=== PATIENT | male | born 1960 | race Caucasian/White ===

== ENCOUNTER 2018-01-11 16:45 | Inpatient (IN) ==
--- NOTE | 2018-01-11 17:06 | Emergency Department Note ---
Disposition Clinical Impression: Chest pain Qualifiers: Chest pain type: unspecified Qualified Code(s): R07.9 - Chest pain, unspecified Disposition: Admitted As Inpatient Condition: Good Time of Disposition: 17:43 Chest Pain HPI - General Chief Complaint: ED Chest Pain Stated Complaint: chest pain Time Seen by Provider: 01/11/18 17:02 Source: patient Mode of arrival: ambulatory Limitations: no limitations Vital Signs Reviewed: Yes Nursing Notes Reviewed: Yes - History of Present Illness HPI Narrative: Patient is a 57-year-old male with past medical history of GERD. He presents today due to chest pain. He states that for the past 24 hours, he has had midsternal chest discomfort 30 to his back and jaws. He says that it comes and goes and lasts several hours at a time. Does not worsen with exertion, no worsening with deep inspiration. Denies any associated nausea, vomiting, sweating. He says that he has had GERD related discomfort in the past but that this feels different and describes as a pressure. 10 out of 10 at its worst. Currently rates it as 0 out of 10. Denies any history of any hypertension, diabetes, high cholesterol. Denies any history of [place] or cardiac stents, has never had a stress test or heart catheter in the past. Did not take any medication prior to coming in, did not take aspirin or nitroglycerin. Severity scale (1-10): 5 - Related Data Home Medications Medication Instructions Recorded Confirmed Ibuprofen 07/07/17 Tylenol 07/07/17 07/07/17 Previous Rx's Medication Instructions Recorded cephALEXin [Keflex] 500 mg PO QID #40 capsule 07/07/17 cephALEXin [Keflex] 500 mg PO QID #40 capsule 07/15/17 Allergies Allergy/AdvReac Type Severity Reaction Status Date / Time No Known Allergies Allergy Verified 01/11/18 16:48 All systems ED: reviewed and negative except as stated. Constitutional: Denies: fever Cardiovascular: Reports: chest pain Respiratory: Denies: cough, dyspnea, wheezes Gastrointestinal: Denies: abdominal pain, nausea, vomiting, diarrhea Genitourinary: Denies: urgency, dysuria Integumentary: Denies: rash Neurological: Denies: headache, weakness, numbness, paresthesias Chest Pain PMH - Past Medical History Medical history: Reports: non-contributory Psychiatric history: Reports: no psych history - Social History Smoking Status: 2nd Hand Smoke Exposure Alcohol use: Reports: none Drug use: Reports: none Physical Exam - General Limitations: no limitations General appearance: alert, in no apparent distress - Head Head exam: atraumatic, normocephalic, normal inspection - Eye Eye exam: Present: normal appearance, PERRL, EOMI - ENT ENT exam: normal exam, normal oropharynx, mucous membranes moist - Neck Neck exam: Present: normal inspection, full ROM, trachea midline. Absent: tenderness - Chest Chest inspection: Present: normal inspection, symmetric chest wall rise - Respiratory Respiratory exam: Present: normal lung sounds bilaterally - Cardiovascular Cardiovascular exam: Present: regular rate, normal rhythm, normal heart sounds - Abdominal Exam Abdominal exam: Present: soft, Non-Tender. Absent: tenderness, distention, guarding, rebound, rigidity - Extremities Exam Extremities exam: Present: normal inspection, full ROM. Absent: tenderness, pedal edema - Neurological Exam Neurological exam: Present: alert, oriented X3 - Psychiatric Psychiatric exam: Present: normal affect, normal mood - Skin Skin exam: Present: warm, dry, intact, normal color. Absent: rash Course Course Narrative: Systolic blood pressure in the 100s. We will give the patient normal saline bolus of 1 L. Otherwise, the rest of the vitals within normal limits. Physical exam benign. Heart regular rate and rhythm, lungs clear to auscultation, abdomen soft and nontender. No reproducible pain on chest, no rashes. We will give the patient aspirin 325 mg he has declined any other medication at this time. He does not currently have any chest pain at this time , no shortness of breath. Will perform EKG, chest x-ray, troponin, basic labs. We will likely admit the patient for chest pain rule out even if workup is negative due to no history of heart catheter or stress test, poor follow-up. 18:22 patient has an episode of lightheadedness. Repeat EKG shows bradycardia with a rate in the 40s. No acute ST changes. There is a shortened CO interval and somewhat widened QRS. Pending troponin at this time. Chest x-ray negative for any acute cardio pulmonary process. CBC shows mild elevation white blood cell count at 12.5. Patient had a be given 1 mg of atropine due to heart rate in the 40s, blood pressure 80s over 40s. After atropine, heart rate improved to the 80s, blood pressure repeated was 120s over 70s. Patient did get 1 L normal saline bolus pressure bagged in. He now states he no longer has lightheadedness but does have some mild return of his chest pressure rated a 2 out of 10 at this time. 19:[address] Bello. Discussed presentation, current chest discomfort , elevated troponin, negative chest x-ray. Discussed most recent EKG that showed a new T-wave inversions in aVL and ST depression in V2 through V5 that is new from first EKG that was performed. She recommended heparin the patient had no contra indications. I discussed any recent surgeries, GI bleeding, recent strokes, any injuries or head injury with the patient and he denied any of these. No current contraindications to heparin. She also recommended pain control this time. Otherwise, but this time. She states that cardiology will see the patient as consult and will possibly take to Full Time Paramedic after evaluation tomorrow. Patient admitted to hospitalist Dr. Mak. Patient will be going to . Vital Signs Temperature 98.2 F 01/11/18 16:45 Pulse Rate 72 01/11/18 16:45 Respiratory Rate 18 01/11/18 16:45 Blood Pressure 101/63 01/11/18 16:45 O2 Sat by Pulse Oximetry 99 01/11/18 16:45 Temperature 98.2 F 01/11/18 17:22 Pulse Rate 86 01/11/18 19:15 Respiratory Rate 20 01/11/18 18:17 Blood Pressure 125/90 01/11/18 19:15 O2 Sat by Pulse Oximetry 100 01/11/18 18:17 Oxygen Delivery Oxygen Delivery Room Air Chest Pain - MDM Narrative Medical decision making narrative: Systolic blood pressure in the 100s. We will give the patient normal saline bolus of 1 L. Otherwise, the rest of the vitals within normal limits. Physical exam benign. Heart regular rate and rhythm, lungs clear to auscultation, abdomen soft and nontender. No reproducible pain on chest, no rashes. We will give the patient aspirin 325 mg he has declined any other medication at this time. He does not currently have any chest pain at this time , no shortness of breath. Will perform EKG, chest x-ray, troponin, basic labs. We will likely admit the patient for chest pain rule out even if workup is negative due to no history of heart catheter or stress test, poor follow-up. 18:22 patient has an episode of lightheadedness. Repeat EKG shows bradycardia with a rate in the 40s. No acute ST changes. There is a shortened CO interval and somewhat widened QRS. Pending troponin at this time. Chest x-ray negative for any acute cardio pulmonary process. CBC shows mild elevation white blood cell count at 12.5. Patient had a be given 1 mg of atropine due to heart rate in the 40s, blood pressure 80s over 40s. After atropine, heart rate improved to the 80s, blood pressure repeated was 120s over 70s. Patient did get 1 L normal saline bolus pressure bagged in. He now states he no longer has lightheadedness but does have some mild return of his chest pressure rated a 2 out of 10 at this time. 19:[address] Bello. Discussed presentation, current chest discomfort , elevated troponin, negative chest x-ray. Discussed most recent EKG that showed a new T-wave inversions in aVL and ST depression in V2 through V5 that is new from first EKG that was performed. She recommended heparin the patient had no contra indications. I discussed any recent surgeries, GI bleeding, recent strokes, any injuries or head injury with the patient and he denied any of these. No current contraindications to heparin. She also recommended pain control this time. Otherwise, but this time. She states that cardiology will see the patient as consult and will possibly take to Full Time Paramedic after evaluation tomorrow. Patient admitted to hospitalist Dr. Mak. Patient will be going to . - Medical Records Medical records reviewed: Yes I reviewed the patient's medical records. - Lab Data Lab results reviewed: Yes I reviewed the patient's lab results. Result diagrams: 01/11/18 17:22 01/11/18 17:22 Lab Results 01/11/18 01/11/18 01/11/18 Range/Units 17:22 17:22 17:22 WBC 12.5 H (4.3-11.1) K/mcL RBC 4.42 (4.19-5.50) M/mcL Hgb 14.1 (12.9-16.9) g/dL Hct 40.8 (37.5-50.1) % MCV 92.3 (83.0-100.0) fL MCH 31.9 (28.0-33.3) pg MCHC 34.6 (31.6-35.5) g/dL RDW 13.1 (11.5-14.5) % Plt Count 241 (140-400) K/mcL MPV 10.1 (9.4-12.4) fL Immature Gran % 0.5 (0-4) % Seg Neutrophils % 89.6 % Lymphocytes % 6.9 % Monocytes % 2.6 % Eosinophils % 0.2 % Basophils % 0.2 % Neutrophils # 11.3 H (1.6-8.9) K/mcL Lymphocytes # 0.9 (0.6-4.6) K/mcL Monocytes # 0.3 (0.0-1.3) K/mcL Eosinophils # 0.0 (0.0-0.6) K/mcL Basophils # 0.0 (0.0-0.2) K/mcL PT 11.4 (9.4-12.1) Seconds INR 1.1 APTT 28.2 (26.0-36.0) Seconds Sodium 137 (136-145) mEq/L Potassium 3.9 (3.5-5.1) mEq/L Chloride 102 (98-107) mEq/L Carbon Dioxide 27 (23-29) mEq/L BUN 12 (6-20) mg/dL Creatinine 0.90 (0.70-1.30) mg/dL Est GFR ( Amer) > 60 (> 60) Est GFR (Non-Af Amer) > 60 (> 60) BUN/Creatinine Ratio 13 (6-26) Glucose 127 H (70-105) mg/dL POC Glucose (70-99) mg/dL Calculated Osmolality 285 (280-300) Calcium 9.8 (8.6-10.3) mg/dL Troponin I 1.13 H* (< 0.04) ng/mL 01/11/18 Range/Units 18:07 WBC (4.3-11.1) K/mcL RBC (4.19-5.50) M/mcL Hgb (12.9-16.9) g/dL Hct (37.5-50.1) % MCV (83.0-100.0) fL MCH (28.0-33.3) pg MCHC (31.6-35.5) g/dL RDW (11.5-14.5) % Plt Count (140-400) K/mcL MPV (9.4-12.4) fL Immature Gran % (0-4) % Seg Neutrophils % % Lymphocytes % % Monocytes % % Eosinophils % % Basophils % % Neutrophils # (1.6-8.9) K/mcL Lymphocytes # (0.6-4.6) K/mcL Monocytes # (0.0-1.3) K/mcL Eosinophils # (0.0-0.6) K/mcL Basophils # (0.0-0.2) K/mcL PT (9.4-12.1) Seconds INR APTT (26.0-36.0) Seconds Sodium (136-145) mEq/L Potassium (3.5-5.1) mEq/L Chloride (98-107) mEq/L Carbon Dioxide (23-29) mEq/L BUN (6-20) mg/dL Creatinine (0.70-1.30) mg/dL Est GFR ( Amer) (> 60) Est GFR (Non-Af Amer) (> 60) BUN/Creatinine Ratio (6-26) Glucose (70-105) mg/dL POC Glucose 124 H (70-99) mg/dL Calculated Osmolality (280-300) Calcium (8.6-10.3) mg/dL Troponin I (< 0.04) ng/mL - Radiology Data Radiology results reviewed: Yes I reviewed the patient's radiology results. Chest X-Ray 01/11/18 17:02 IMPRESSION: No radiographic evidence of acute cardiopulmonary disease. D/ / Armin Mccall / Armin Mccall Interpreting Provider: Armin Mcclal - EKG Data EKG attestation: Yes I reviewed and interpreted this EKG. EKG results narrative: 01/11/2018 at 17:14. Normal sinus rhythm. Rate 75. CO 147. QRS 97. QTC 428. Normal axis. No acute ST elevation or depression. 01/12/20 1818:06. Sinus bradycardia. Rate 44. CO 149. QRS 100. QTC 404. Normal axis. No acute ST elevation or depression. Short CO interval. No obvious delta waves. EKG #3. 01/11/2018 18:52. Normal sinus rhythm. Rate 99. CO 163. QRS 102. QTC 393. No axis. ST depression in V2 through V5, new T-wave inversion in aVL. These changes are new from first EKG. No STEMI criteria. Heart Score - Score History: Moderately Suspicious EKG: Normal Age: 45-65 Risk Factors: No risk factors known Troponin: Less than normal limit HEART Score Total: 2 S.B.A.R. - S.B.A.R. Situation: Demographics, MOA Background: Presenting Complaint, Relevant PMH, Meds, & Allergies Assessment: Vital Signs, Course and respsone to treatment, Exam Concerns, Patient/Family Expectation, Pertinant Lab Results Recommendation: Barrier(s) to disposition, Recommendation based on pending studies, treatments, or consults S.B.A.R. Report Given to: Dr. Mak
[2018-01-11] MEDS ORDERED: Aspirin 325 MG TABLET PO ONE (17:30)
[2018-01-11 17:35] LABS: Basophils % 0.2 %; Eosinophils % 0.2 %; Hematocrit 40.8 % (37.5-50.1); Hemoglobin 14.1 g/dL (12.9-16.9); Immature Granulocytes % 0.5 % (0-4); Lymphocytes # 0.9 K/mcL (0.6-4.6); Lymphocytes % 6.9 %; Mean Corpuscular HGB Conc 34.6 g/dL (31.6-35.5); Mean Corpuscular Hemoglobin 31.9 pg (28.0-33.3); Mean Corpuscular Volume 92.3 fL (83.0-100.0); Mean Platelet Volume 10.1 fL (9.4-12.4); Monocytes # 0.3 K/mcL (0.0-1.3); Monocytes % 2.6 %; Neutrophils # 11.3 K/mcL (1.6-8.9); Platelet Count 241 K/mcL (140-400); Red Blood Count 4.42 M/mcL (4.19-5.50); Red Cell Distribution Width 13.1 % (11.5-14.5); Segmented Neutrophils % 89.6 %
[2018-01-11] MEDS ORDERED: 0.9 % Sodium Chloride 1,000 ML IVC ONE (17:40)
[2018-01-11 17:46] LABS: INR 1.1; Prothrombin Time 11.4 Seconds (9.4-12.1)
[2018-01-11 17:54] LABS: Activated Partial Thrombo Time 28.2 Seconds (26.0-36.0)
[2018-01-11] MEDS ORDERED: *HR* Atropine Sulfate 1 MG/10 ML SYRINGE IVP ONE (18:10)
--- NOTE | 2018-01-11 18:21 | Emergency Department Note ---
START Narrative - START START: I examined this patient and my medical decision-making was reviewed with the Resident Physician. I agree with the documented findings, disposition and treatment plan as described except to the extent set forth below. 57 yo M here for chest pressure x 24 hours. no hx of CAD. just described a pressure in his chest. 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 no previous [place] or anything like this. pt had episode in ER of a symptomatic bradycardic episode. HR dropped to 30s and got hypotensive. fluids started right away. placed on pads. given atropine and he responded well. awaiting trop results. CXR neg repeat EKG showed bradycardia. he's on the pacer pads if needed. HR now in the 80s and his BP has improved to 110 systolic. pt will be admitted. critical care time of 35 min spent in medical management of symptomatic bradycardia, unstable angina, hypotension.
[2018-01-11 18:25] LABS: BUN/Creatinine Ratio 13 (6-26); Blood Urea Nitrogen 12 mg/dL (6-20); Calcium 9.8 mg/dL (8.6-10.3); Carbon Dioxide 27 mEq/L (23-29); Chloride 102 mEq/L (98-107); Glucose 127 mg/dL (70-105); Osmolality,Calculated 285 (280-300); Potassium 3.9 mEq/L (3.5-5.1); Sodium 137 mEq/L (136-145); eGFR For African Americans > 60 (> 60); eGFR For Non-African Americans > 60 (> 60)
[2018-01-11 18:43] LABS: Troponin I 1.13 ng/mL (< 0.04)
[2018-01-11] MEDS ORDERED: *HR* Heparin 5,000 UNIT/ML VIAL IVP PRN ×2 (18:59)
[2018-01-11] MEDS ORDERED: *HR* FentaNYL (PF) 100 MCG/2 ML VIAL IVP ONE (18:59)
[2018-01-11] MEDS ORDERED: *HR* Heparin 5,000 UNIT/ML VIAL IVP ONE (18:59)
[2018-01-11] MEDS ORDERED: Heparin 25,000 UNIT/500 ML D5W 25,000 UNIT/500 ML BAG IVC SCH (19:00)
[2018-01-11] MEDS ORDERED: Naloxone 0.4 MG/ML INJ IVP PRN (20:13)
[2018-01-11] MEDS ORDERED: Ondansetron 4 MG/2 ML VIAL IVP PRN (20:22)
[2018-01-11] MEDS ORDERED: Acetaminophen 325 MG TABLET PO PRN (20:22)
[2018-01-11] MEDS ORDERED: OXYCODONE Oral CONC 10 MG/0.5 ML ORAL.SYG SL PRN (20:22)
--- NOTE | 2018-01-11 20:37 | Internal Med History&Physical ---
<Sadia Foster - Last Filed: 01/11/18 20:34> Date of Encounter: 01/11/18 Time of Encounter: 20:35 Internal Medicine - H&P: HPI Chief complaint: Chest pain Admitted From: Emergency Dept Plans for Post Hospital Care: Home History of present illness: Mr. Romero is a 57 year old male with past medical history of Gerd presented to the ED today for chief complaint of chest pain that started 4 PM today prior. She described the pain as a dull ache that was 4/10, non pleuritic, radiates to the jaw and back. He states that this has never happened before. He denies exacerbating or relieving factors. He does admit to shortness of breath when the pain for started denies current shortness of breath. He denies current chest pain. He denies nausea, vomiting, diarrhea, fever, chills, hematuria, hematochezia, hematuria. Past Med Surg Social Fam HX - Past Medical History Medical history: non-contributory Psychiatric history: no psych history - Social History Smoking Status: 2nd Hand Smoke Exposure Smokeless Tobacco Status: Yes (chews tabacco) Alcohol use: none Drug use: none - Family History Mother Hx Family Endocrine Disorder: Yes (DM) Internal Medicine - H&P: Meds Ibuprofen 07/07/17 [History] Tylenol 07/07/17 [History] cephALEXin [Keflex] 500 mg PO QID #40 capsule 07/07/17 [Rx] cephALEXin [Keflex] 500 mg PO QID #40 capsule 07/15/17 [Rx] 3 Allergy/AdvReac Type Severity Reaction Status Date / Time No Known Allergies Allergy Verified 01/11/18 16:48 All Systems PM: A 10-system review of systems was performed and is negative for pertinent findings except as documented above in the HPI. - Constitutional Constitutional: as per HPI - EENT Eyes: as per HPI Ears: as per HPI Nose, mouth and throat: as per HPI - Breasts Breasts: as per HPI - Cardiovascular Cardiovascular ROS IM: as per HPI - Respiratory Respiratory: as per HPI - Gastrointestinal Gastrointestinal: as per HPI - Genitourinary Genitourinary ROS male: as per HPI - Musculoskeletal Musculoskeletal ROS IM: as per HPI - Integumentary Integumentary IM: as per HPI - Neurological Neurological ROS: as per HPI - Psychiatric Psychiatric: as per HPI - Endocrine Endocrine IM: as per HPI - Hematologic/Lymphatic Hematologic/Lymphatic: as per HPI - Allergic/Immunologic Allergic/Immunologic: as per HPI - Constitutional Vitals: Temp Pulse Resp BP Pulse Ox 98.2 F 86 20 125/90 100 01/11/18 17:22 01/11/18 19:15 01/11/18 18:17 01/11/18 19:15 01/11/18 18:17 General appearance: Present: A&O X 3, pleasant, no acute distress, answers questions appropriately - Head Head exam: Present: atraumatic, normocephalic - ENT ENT exam: Present: mucous membranes moist - Neck Neck exam general surgery: Present: supple, trachea midline - Respiratory Respiratory exam: Present: CTAB - Cardiovascular Cardiovascular exam: Present: RRR, +S1, +S2. Absent: systolic murmur Additional comments: Chest pain will not reproducible with chest palpation - GI/Abdominal GI/Abdominal exam: Present: normal bowel sounds, soft. Absent: distended, tenderness - Extremities Exam Extremities exam: Absent: cyanotic, pedal edema - Neurological Exam Neurological exam: Present: alert, oriented X3, no focal deficits - Psychiatric Psychiatric exam: Present: normal affect, normal mood Internal Med - H&P Results - Labs CBC & Chem 7: 01/11/18 17:22 01/11/18 17:22 Labs: Short CBC 01/11/18 Range/Units 17:22 WBC 12.5 H (4.3-11.1) K/mcL Hgb 14.1 (12.9-16.9) g/dL Hct 40.8 (37.5-50.1) % Plt Count 241 (140-400) K/mcL Neutrophils # 11.3 H (1.6-8.9) K/mcL BMP 01/11/18 17:22 Sodium 137 Potassium 3.9 Chloride 102 Carbon Dioxide 27 BUN 12 Creatinine 0.90 Glucose 127 H Calcium 9.8 Cardiac Enzymes 01/11/18 Range/Units 17:22 Troponin I 1.13 H* (< 0.04) ng/mL - Impressions ITS Impressions Chest X-Ray 01/11/18 17:02 IMPRESSION: No radiographic evidence of acute cardiopulmonary disease. D/ / Armin Mccall / Armin Mccall Interpreting Provider: Armin Mccall - Assessment and plan (1) Chest pain Current Visit: Yes Status: Acute Assessment and plan: describes non anginal chest pain that started at 4 PM yesterday that of sub sternal, 11/26, radiates the jaw and back, known pleuritic PEDRITO score: 3 patient received fluid bolus, aspirin in the ED. He also required 1 mg atropine due to bradycardia with heart rate in the 30s. Plan: cardiology consult it in emergency department, they will evaluate tomorrow. Aspirin, Statin pain control, oxygen as needed heparin GTT we will hold off on beta blockers at this time as patient was bradycardic, we will closely monitor HR. Qualifiers: Chest pain type: unspecified Qualified Code(s): R07.9 - Chest pain, unspecified (2) DVT prophylaxis Current Visit: Yes Status: Acute Assessment and plan: Heparin GTT (3) GERD (gastroesophageal reflux disease) Current Visit: Yes Status: Chronic Qualifiers: Esophagitis presence: without esophagitis Qualified Code(s): K21.9 - Gastro -esophageal reflux disease without esophagitis - Time Spent With Patient Total time spent is greater than 50% in coordination of care (as documented) at patient's floor/unit and/or counseling patient: <Nadia Levine - Last Filed: 01/11/18 22:02> Date of Encounter: 01/11/18 Internal Medicine - H&P: HPI History of present illness: Mr. Romero is a 57 year old male All Systems PM: A 10-system review of systems was performed and is negative for pertinent findings except as documented above in the HPI. - Constitutional Vitals: Temp Pulse Resp BP Pulse Ox 98.2 F 64 18 91/61 100 01/11/18 17:22 01/11/18 20:45 01/11/18 21:06 01/11/18 21:06 01/11/18 18:17 Internal Med - H&P Results - Labs CBC & Chem 7: 01/11/18 17:22 01/11/18 17:22 - Attending Attestation I have seen and examined this patient independently. I have discussed with resident physician Dr Foster regarding the management plan. Agree with the documentation. - Assessment and plan (1) Chest pain Current Visit: Yes Status: Acute Qualifiers: Chest pain type: unspecified Qualified Code(s): R07.9 - Chest pain, unspecified (2) DVT prophylaxis Current Visit: Yes Status: Acute (3) GERD (gastroesophageal reflux disease) Current Visit: Yes Status: Chronic Qualifiers: Esophagitis presence: without esophagitis Qualified Code(s): K21.9 - Gastro -esophageal reflux disease without esophagitis - Time Spent With Patient Total time spent is greater than 50% in coordination of care (as documented) at patient's floor/unit and/or counseling patient:
[2018-01-12 00:41] LABS: Basophils % 0.2 %; Eosinophils % 0.2 %; Hematocrit 37.7 % (37.5-50.1); Hemoglobin 12.7 g/dL (12.9-16.9); Immature Granulocytes % 0.3 % (0-4); Lymphocytes # 0.9 K/mcL (0.6-4.6); Lymphocytes % 7.7 %; Mean Corpuscular HGB Conc 33.7 g/dL (31.6-35.5); Mean Corpuscular Hemoglobin 31.4 pg (28.0-33.3); Mean Corpuscular Volume 93.1 fL (83.0-100.0); Mean Platelet Volume 10.4 fL (9.4-12.4); Monocytes # 0.5 K/mcL (0.0-1.3); Monocytes % 4.2 %; Neutrophils # 9.8 K/mcL (1.6-8.9); Platelet Count 197 K/mcL (140-400); Red Blood Count 4.05 M/mcL (4.19-5.50); Red Cell Distribution Width 13.1 % (11.5-14.5); Segmented Neutrophils % 87.4 %
[2018-01-12 01:01] LABS: BUN/Creatinine Ratio 13 (6-26); Blood Urea Nitrogen 12 mg/dL (6-20); Calcium 9.4 mg/dL (8.6-10.3); Carbon Dioxide 27 mEq/L (23-29); Chloride 105 mEq/L (98-107); Chol/HDL Ratio 3.6 (0-4.9); Cholesterol 174 mg/dL (< 200); Glucose 134 mg/dL (70-105); HDL Cholesterol 49 mg/dL (40-59); LDL Cholesterol,Calculated 107 mg/dL (0-99); Magnesium 2.2 mg/dL (1.6-2.6); Osmolality,Calculated 286 (280-300); Phosphorous 4.3 mg/dL (2.7-4.5); Potassium 4.1 mEq/L (3.5-5.1); Sodium 137 mEq/L (136-145); Triglycerides 90 mg/dL (< 150); eGFR For African Americans > 60 (> 60); eGFR For Non-African Americans > 60 (> 60)
[2018-01-12] MEDS ORDERED: 0.9 % Sodium Chloride 1,000 ML ONE ×2 (09:06→09:15)
[2018-01-12] MEDS ORDERED: Nitroglycerin 1,000 MCG/10 ML VIAL IV ONE (09:06)
[2018-01-12] MEDS ORDERED: Heparin 1,000 UNITS/500 mL 500 ML ONE (09:06)
[2018-01-12] MEDS ORDERED: *HR* Heparin 10,000 UNIT/10 ML VIAL ONE (09:06)
[2018-01-12] MEDS ORDERED: ISOVUE-370 200 ML INFUS..BTL IV ONE ×2 (09:06→10:32)
[2018-01-12] MEDS ORDERED: *HR* Midazolam HCl 2 MG/2 ML VIAL ONE (09:36)
[2018-01-12] MEDS ORDERED: *HR* FentaNYL (PF) 100 MCG/2 ML VIAL ONE (09:37)
--- NOTE | 2018-01-12 09:44 | Pre-Sedation Evaluation ---
Pre-sedation evaluation - Pre-sedation checklist Date of procedure: 01/12/18 Procedure: heart cath Recent Vitals: Last Vital Signs Temp 97.6 F 01/12/18 07:25 Pulse 45 01/12/18 07:25 Resp 16 01/12/18 07:25 BP 83/47 01/12/18 07:25 Pulse Ox 94 01/12/18 07:25 H&P (including ROS) documented in medical record: Yes Previous reaction to sedatives/anesthetics: Yes; explain in comment Dietary Status: NPO after Midnight Dentition: dentures removed ASA Classification *see protocol: CLASS II-Mild systemic disease
--- NOTE | 2018-01-12 09:54 | Cardiology Consult Note ---
<Lazaro Vora - Last Filed: 01/12/18 09:49> Date of Encounter: 01/12/18 Time of Encounter: 09:00 Assessment and Plan (1) NSTEMI (non-ST elevated myocardial infarction) Current Visit: Yes Status: Acute Typical chest pain symptoms, no prior cardiac history. Troponin up to 11.06. EKG with sinus bradycardia. No ST changes. LHC R/B/A discussed and he agrees to proceed. Check TTE. Heparin gtt. Asa, statin. No bb due to bradycardia. Cardiac rehab. (2) Bradycardia Current Visit: Yes Status: Acute HR in the 40's during my exam. C/o intermittent dizziness yesterday. May be secondary to ischemia. LHC pending. Avoid bb. Discussion w patient/family: The assessment and plan as outlined above was discussed with the patient and/or family members who expressed understanding and agreement. All questions were answered. Thank you for involving us in the care of your patient. Please call with any questions. History of Present Illness Consult date: 01/12/18 Requesting physician: Nadia Levine Consult reason: NSTEMI Chief complaint: Chest pain History of present illness: Mr. Romero is a 57 year old male with history of tobacco use and no significant medical history presents with chest pain. C/o midsternal chest pain that started when he was walking to his car on saturday. His pain was rated 5/10 and was associated with dizziness. He presented to the ED the following day for continued chest pain. He was given asa with some relief. He denies SOB or palpitations. Denies orthopnea, PND, or edema. He is currently pain free. He does admit to recently establishing with PCP for heart burn symptoms over the past few months. He was planning on having EGD. Cardiac work-up revealed elevated troponin at 1.13. EKG showed sinus bradycardia with no acute ST changes. Cardiology consulted for NSTEMI. Past Med Surg Social Fam HX - Past Medical History Medical history: non-contributory, GERD (?) Psychiatric history: no psych history - Social History Smoking Status: 2nd Hand Smoke Exposure Smokeless Tobacco Status: Yes (chews tabacco) Alcohol use: none Drug use: none - Family History Mother Hx Family Endocrine Disorder: Yes (DM) Medications and Allergies 3 Allergy/AdvReac Type Severity Reaction Status Date / Time No Known Allergies Allergy Verified 01/12/18 14:19 All Systems Review: The remainder of the systems were reviewed and are negative Physical Examination Vital Signs, Last 4 Hours Temp Pulse Resp BP Pulse Ox 01/12/18 07:25 97.6 F 45 16 83/47 94 General: Conversant, No Apparent Distress HEENT: Atraumatic, Normocephaly, Mucus Membranes Moist Neck: No JVD, Normal carotid pulses Cardiac: Reg Rate and Rhythm, Normal S1 and S2, No Murmur Lungs: Normal Breath Sounds, No Wheeze, Rales, Rhonchi Neuro: Alert and responsive, No focal deficits noted Abdomen: Soft, Non-Tender Skin: No rashes noted on visualized skin Musculoskeletal: No Chest Wall Tenderness Extremities: No Clubbing, No Cyanosis, No Edema, Normal Pulses Results 01/12/18 00:30 01/12/18 00:29 Lab Results 01/12/18 01/12/18 01/12/18 00:29 00:29 00:29 WBC Hgb Hct Plt Count APTT 75.1 H D Sodium 137 Potassium 4.1 Chloride 105 Carbon Dioxide 27 BUN 12 Creatinine 0.89 Glucose 134 H Calcium 9.4 Magnesium 2.2 Troponin I 4.00 H* 01/12/18 01/12/18 01/12/18 00:30 05:31 05:31 WBC 11.2 H Hgb 12.7 L Hct 37.7 Plt Count 197 APTT 56.6 H Sodium Potassium Chloride Carbon Dioxide BUN Creatinine Glucose Calcium Magnesium Troponin I 11.06 H* - Imaging and Cardiology Echo: pending - EKG Interpretation EKG results cardiology: personally reviewed Consult Discharge Plan - Plan Referrals: Opal Pink, [employer] CHECKER [Primary Care Provider] - <Salena Calles - Last Filed: 01/13/18 10:09> Date of Encounter: 01/13/18 - Attending Attestation I have personally performed a face to face evaluation on this patient. I have reviewed and agree with the care plan. History and Exam by me shows: 57 YOM with NSTEMI EKG changes suggestive of ischemia with peak trop 11 Will proceed with an urgent LHC today R/B/A d/w patient and he agrees to proceed Assessment and Plan Discussion w patient/family: The assessment and plan as outlined above was discussed with the patient and/or family members who expressed understanding and agreement. All questions were answered. Thank you for involving us in the care of your patient. Please call with any questions. History of Present Illness History of present illness: Mr. Romero is a 57 year old male All Systems Review: The remainder of the systems were reviewed and are negative Physical Examination Vital Signs, Last 4 Hours Temp Pulse Resp BP Pulse Ox 01/13/18 07:32 98.0 F 60 16 101/63 96 Results 01/13/18 01:48 01/13/18 01:48 Lab Results 01/13/18 01/13/18 01:48 01:48 WBC 6.7 Hgb 12.0 L Hct 36.6 L Plt Count 157 Sodium 140 Potassium 3.8 Chloride 108 H Carbon Dioxide 25 BUN 10 Creatinine 0.89 Glucose 153 H Calcium 8.9 Troponin I 16.11 H*
[2018-01-12] MEDS ORDERED: Tirofiban 12.5 MG/250ML 12.5 MG/250 ML BAG ONE (10:05)
[2018-01-12] MEDS ORDERED: *HR* Ticagrelor 90 MG TABLET ONE (10:59)
--- NOTE | 2018-01-12 11:13 | Invasive Diagnostic Lab Proc ---
Name: Chadd Romero Date of Study: 01/12/2018 Date: 1960 Ht: 75.2in Medical Record#: [id number] Age: 57 Wt: 187.39lb Gender: Male BSA: 2.14 Order #: [id number] BMI: 23.3 Physicians Procedure Physician: Salena Calles MD Referring MD: Opal Pink CNP Referring MD: Staff Name Position Time In DadisonKosta RN Monitor 09:37 AM Lucia Card RT Scrub 09:37 AM Umesh Cardona RN Chemistry Instructor 09:37 AM Indications Indication Non-Stemi Procedures Performed Procedure L HRT ARTERY/VENTRICLE ANGIO PRQ CARD ИРИНА STENT W/ANGIO 1 VSL Pre-Procedure Checklist Informed consent is complete signed and on chart. H&P is on chart. ID band is on and ID verified with patient. Patient NPO for procedure The procedure was described for the patient and questions were answered. Blood Pressure: 83/47 ECG is on chart. Rhythm: Sinus Bradycardia Plan of Care Patient will tolerate the procedure without complications. Adequate level of comfort will be maintained. Hemodynamics will remain stable Patient will recover from procedure without complications. Respiratory function will be maintained. Cardiac rhythm will remain stable. Patient temperature will be maintained. Patient and/or family have verbalized understanding of the procedure. Patient Education Chief Complaint/Reason for Test: Cardiac Cath Developmental Category: Adult (18-64 years) Developmentally Appropriate for Age: Yes Learning Barriers: None Education Needs: Procedure Education Method: Verbal Information Taught: Cardiac Cath Educational Evaluation: Able to repeat information Intravenous Access Time IV Size Location DC'd Fluid/Drip Rate Units RN 09:10 AM 20g 1 1/4" Patent On Arrival Rt Antecubital 0.9NaCl 25 ml/hr Umesh Cardona RN Allergies No Known Allergies Vital Signs Time BP (mmHg) HR (bpm) O2 Sat. RR (bpm) LOC 09:13 AM 83 / 47 45 94 % 16 5 = Fully awake and oriented or at pre-proc level 09:47 AM / % 5 = Fully awake and oriented or at pre-proc level 09:47 AM / % 4 = Oriented but drowsy 10:02 AM / % 4 = Oriented but drowsy 10:18 AM / % 4 = Oriented but drowsy 10:33 AM / % 4 = Oriented but drowsy 09:42 AM 101 / 57 71 97 % 09:47 AM 98 / 58 44 98 % 09:52 AM 95 / 56 44 98 % 09:57 AM 96 / 54 44 98 % 10:02 AM 100 / 58 58 100 % 10:07 AM 100 / 60 57 100 % 10:12 AM 109 / 75 52 100 % 10:17 AM 100 / 64 67 100 % 10:22 AM 103 / 59 53 100 % 10:27 AM 104 / 65 46 95 % 10:32 AM 103 / 66 50 96 % 10:37 AM 106 / 64 58 99 % 10:42 AM 106 / 60 53 100 % 10:47 AM 95 / 56 49 100 % 10:52 AM 100 / 74 61 100 % 10:57 AM 99 / 56 % Procedural Medications Time Medication Dose Units Method Given By 09:38 AM Oxygen 2 L/min nasal cannula Umesh Cardona RN 09:43 AM Versed 1 mg Intravenous Umesh Cardona RN 09:43 AM Fentanyl 50 mcg Intravenous Umesh Cardona RN 09:58 AM Lidocaine 2% 18 ml Subcutaneous Salena Calles MD 10:11 AM Heparin 4000 units Intravenous Umesh Cardona RN 10:13 AM Aggrastat Bolus: 46 ml Intravenous Umesh Cardona RN 10:13 AM Aggrastat 12.5mg/250ml 16.5 ml/hr Intravenous Umesh Cardona RN 10:55 AM Brilinta 180 mg Orally Umesh Cardona RN ASA Classification: CLASS II- Mild systemic disease (i.e. well-controlled diabetes, hypertension, asthma, cigarette smoking) Charisma Score Preprocedure Postprocedure Activity 2- Moves 4 extremities sustained head lift Activity 2- Moves 4 extremities sustained head lift Circulation 2- SBP +/= 20 points of pre-anesthetic level Circulation 2- SBP +/= 20 points of pre-anesthetic level Consciousness 2- Awake and alert oriented x 3 Consciousness 2- Awake and alert oriented x 3 O2 Saturation 2- Able to maintain O2 satruation of 92% on room air O2 Saturation 2- Able to maintain O2 satruation of 92% on room air Respiratory 2- Able to deep breathe and cough well Respiratory 2- Able to deep breathe and cough well Total Score 10 Total Score 10 Contrast Agent: Isovue Diagnostic Contrast: 111 ml Total Contrast: 111 ml Fluoro Dose: 2099 mGy Activated Clotting Time Time Seconds to Clot 10:09 AM 163 10:32 AM 283 Procedure Log Time Note Enter By 09:11 AM CathStat 09:36 AM Pt arrived to label printing machinist 2 at 09:36 csmith 09:37 AM Kosta Jaime RN Position: Monitor Time in: :37 csmith 09:37 AM Lucia Card Position: Scrub Time in: 09:37 csmith 09:37 AM Umesh Cardona RN Position: Chemistry Instructor Time in: 09:37 csmith 09:37 AM Patient charges- Angio tray pack, Navilyst 3mm J, Pulse Oximetry and ACIST tubing and transducer csmith :38 AM Hair removed from procedure site in procedure lab using clippers. Bilateral groin prepped with Chloraprep by Lucia Card, then patient was draped. Skin intact. csmith :38 AM Physician arrived :38 csmith :38 AM Meet and greet completed csmith :38 AM Sign in performed according to hospital policy. csmith 09:38 AM Procedure start :38 csmith :38 AM Time: :38 Oxygen on at 2 L/min per nasal cannula by Umesh Cardona RN csmith 09:41 AM Vitals capture started with the following parameters, Patient=Adult, Interval=5 min, Initial Injvgwuo=652 mmHg, Deflation Rate=5 mmHg, Cuff placed on Right Arm 09:42 AM HR=71 bpm, KQXW=856/57 mmhg, SpO2=97.0 % 09:43 AM Time: 09:43 Versed 1 mg Intravenous Given by Umesh Cardona RN csmith :43 AM Time: 09:43 Fentanyl 50 mcg Intravenous [facility] AM HR=44 bpm, NIBP=98/58 mmhg, SpO2=98.0 %, Comment=sb 09:47 AM ASA Class CLASS II- Mild systemic disease (i.e. well-controlled diabetes, hypertension, asthma, cigarette smoking) [facility] :47 AM Time: 09:47 Patient comfortable and pain free: Yes csmith :47 AM Time: 09:47LOC: 5 = Fully awake and oriented or at pre-proc level csmith 09:47 AM Clinical Presentation: Non-STEMI csmith 09:52 AM HR=44 bpm, NIBP=95/56 mmhg, SpO2=98.0 %, Comment=sb 09:57 AM HR=44 bpm, NIBP=96/54 mmhg, SpO2=98.0 %, Comment=sb 09:58 AM Time out performed according to hospital policy csmith 09:59 AM Pressure channel 1 zeroed. 09:59 AM Time: 09:58 18 ml Lidocaine 2% to right groin Subcutaneous Given by Salena Calles MD csmith 10:01 AM Micro-Introducer Kit utilized for sheath placement csmith 10:01 AM Access obtained by percutaneous puncture. 6Fr 10cm Terumo Husser sheath placed in right Femoral artery. [id number] csmith 10:02 AM HR=58 bpm, RMZL=741/58 mmhg, LzT7=721.0 %, Comment=sb 10:02 AM 5Fr FR 4 catheter inserted over the wire [facility] 10:02 AM Time: 09:47LOC: 4 = Oriented but drowsy csmith 10:02 AM Time: 09:47 Patient comfortable and pain free: Yes [facility] 10:03 AM Recorded Pressure: Ao, HR=92, Condition=Condition 1 (Aorta) Ao 87/62/74 10:05 AM RCA angiography performed in multiple views. csmith 10:06 AM Catheter removed csmith 10:06 AM 5Fr FL [facility] HR=57 bpm, HFQE=174/60 mmhg, VbZ5=199.0 %, Comment=sb 10:07 AM LCA angiography performed in multiple views. csmith 10:09 AM At 10:09 the ACT was 163 seconds. csmith 10:09 AM PCI Status Urgent csmith 10:09 AM PCI Indication: PCI for high risk Non-STEMI or unstable angina csmith 10:10 AM 5Fr Pigtail catheter inserted over the wire DN csmith 10:10 AM Recorded Pressure: LV, HR=64, Condition=Condition 1 (Left Ventricle) LV 100/13/18 10:11 AM Catheter selectively placed in left ventricle csmith 10:11 AM Bolus angiogram of left Ventricle complete: 10 ml/sec for a total of 20 mls csmith 10:11 AM Time: 10:11 Heparin 4000 units Intravenous Given by Umesh Cardona RN csmith 10:12 AM Recorded Pressure: LV, Ao, HR=69, Condition=Condition 1 (Left Ventricle) LV 112/4/24, (Aorta) Ao 113/71/88 10:12 AM HR=52 bpm, BNZJ=701/75 mmhg, InO2=196.0 %, Comment=sb 10:12 AM Catheter removed csmith 10:12 AM Lesion found in Distal RCA. Pre Stenosis: 100 Pre PEDRITO Flow: 0: No Flow/No perfusion csmith 10:12 AM Right Coronary, Right Posterior Descending Arteries with Right Posterolateral and Acute Marginal branches with 100 % stenosis. If graft is supplying this area, 0 % stenosis csmith 10:13 AM 6Fr JR4 Cordis guide catheter was used to cannulate the PCI vessel successfully. reused? No csmith 10:13 AM .014 [employer] 190cm guide wire across target lesion- successful. reused? No csmith 10:13 AM Inflation device was opened. csmith 10:13 AM Time: 10:13 Aggrastat Bolus: 46 ml Intravenous Given by Umesh Cardona RN [place] [facility] csmith 10:14 AM Time: 10:13 Aggrastat 12.5mg/250ml 16.5 ml/hr Intravenous Given by Umesh Cardona RN [place] pump csmith 10:14 AM Coronary Dominance: right csmith 10:17 AM HR=67 bpm, PJXQ=900/64 mmhg, XjB7=055.0 %, Comment=sb 10:18 AM Time: 10:02 Patient comfortable and pain free: Yes csmith 10:18 AM Time: 10:02LOC: 4 = Oriented but drowsy csmith 10:20 AM Wire being re-shaped. csmith 10:22 AM HR=53 bpm, DOIJ=078/59 mmhg, IfP9=227.0 %, Comment=sb 10:27 AM HR=46 bpm, WHOK=486/65 mmhg, SpO2=95.0 %, Comment=sb 10:29 AM Guide wire removed intact. csmith 10:29 AM .014 [employer] Lens [employer]ician 50 190cm guide wire across target lesion- successful. reused? No csmith 10:31 AM Guide catheter removed intact. csmith 10:31 AM 6Fr HS Runway guide catheter was used to cannulate the PCI vessel successfully. reused? No csmith 10:32 AM At 10:32 the ACT was 283 seconds. csmith 10:32 AM HR=50 bpm, VEMQ=714/66 mmhg, SpO2=96.0 %, Comment=sb 10:32 AM Recorded Pressure: Ao, HR=57, Condition=Condition 1 (Aorta) Ao 99/63/80 10:33 AM Time: 10:18LOC: 4 = Oriented but drowsy csmith 10:33 AM Time: 10:18 Patient comfortable and pain free: Yes csmith 10:35 AM 2.0 mm x 12 mm Emerge Monorail balloon across target lesion- successful. reused? No csmith 10:36 AM Balloon inflated @ 6 zaynab for 10 seconds csmith 10:36 AM Balloon inflated @ 10 zaynab for 10 seconds csmith 10:37 AM HR=58 bpm, TPPJ=553/64 mmhg, SpO2=99.0 %, Comment=sb 10:37 AM Balloon inflated @ 10 zaynab for 6 seconds csmith 10:37 AM Balloon inflated @ 10 zaynab for 14 seconds csmith 10:38 AM Balloon inflated @ 10 zaynab for 10 seconds csmith 10:38 AM Balloon catheter removed intact. csmith 10:40 AM 2.5mm x 24mm Synergy drug-eluting stent across target lesion- successful Lot #[id number] csmith 10:42 AM HR=53 bpm, IYWK=769/60 mmhg, SpS0=967.0 %, Comment=sb 10:43 AM Stent deployed @ 11 zaynab for 16 seconds csmith 10:43 AM Stent balloon reinflated @ 17 zaynab for 14 seconds csmith 10:44 AM Stent delivery system removed intact. csmith 10:45 AM Recorded Pressure: Ao, HR=57, Condition=Condition 1 (Aorta) Ao 88/59/73 10:46 AM 2.5 mm x 12mm NC Emerge balloon across target lesion- successful. reused? No csmith 10:47 AM Balloon inflated @ 18 zaynab for 12 seconds csmith 10:47 AM HR=49 bpm, NIBP=95/56 mmhg, DqQ6=292.0 %, Comment=sb 10:47 AM Balloon inflated @ 18 zaynab for 6 seconds csmith 10:47 AM Balloon catheter removed intact. csmith 10:47 AM Guide wire removed intact. csmith 10:48 AM Recorded Pressure: Ao, HR=54, Condition=Condition 1 (Aorta) Ao 90/59/73 10:48 AM Guide catheter removed intact. csmith 10:49 AM Time: 10:33 Patient comfortable and pain free: Yes csmith 10:49 AM Time: 10:33LOC: 4 = Oriented but drowsy csmith 10:49 AM Procedure completed at 10:49 csmith 10:49 AM Did you address PEDRITO flow and Dominance? Yes csmith 10:49 AM Sign out completed: Radiation Dose 2099 mGy Fluoro Time: 17.4 Isovue 370 - 200ml contrast 111 ml given by Salena Calles MD. Complications: NoneCardiac Rehab Consult needed: YesConfirmed administered medications: Yes csmith 10:49 AM Isovue 370 - 200ml,1 Bottle(s) used. csmith 10:49 AM Arterial sheath pulled, Angio-seal closure device used and was Successful [id number] S/N. csmith 10:49 AM Estimated Blood Loss: less than 20cc csmith 10:49 AM Post ECG Sinus Bradycardia csmith 10:50 AM Post Blood Pressure 95/56 csmith 10:50 AM 10:50 Post Pulses Bilateral DP & PT 1+ csmith 10:50 AM Information taught PCI, Cardiac Cath, and Angioseal csmith 10:50 AM Education needs Procedure, Plan of Care, and Responsibilities of Patient in Care csmith 10:50 AM Learning barriers :None csmith 10:50 AM Education Methods Verbal csmith 10:50 AM Education evaluation Able to repeat information csmith 10:51 AM Site status No bleeding/hematoma - Rt Groin as reported by Lucia Card RT at 10:50 csmith 10:51 AM Opsite applied csmith 10:51 AM Plavix, Effient or Brilinta given Yes csmith 10:52 AM Complications: None csmith 10:52 AM Fluoro Time: 17.4 csmith 10:52 AM HR=61 bpm, NXSA=242/74 mmhg, EwN9=621.0 % 10:52 AM Isovue 370 - 200ml contrast 111 ml given by Salena Calles. csmith 10:52 AM Radiation Dose 2099 mGy csmith 10:55 AM Time: 10:55 Brilinta 180 mg Orally Given by Umesh Cardona RN csmith 10:57 AM NIBP=99/56 mmhg, Comment=sb 11:00 AM Vitals capture stopped. 11:00 AM Lesion found in Proximal Circumflex. Pre Stenosis: 40 Pre PEDRITO Flow: csmith 11:00 AM Lesion found in Distal Circumflex. Pre Stenosis: 60 Pre PEDRITO Flow: csmith 11:00 AM Lesion found in Mid LAD. Pre Stenosis: 50 Pre PEDRITO Flow: csmith 11:01 AM Mid/Distal Left Anterior Descending Coronary Artery and diagonal branches with 50% stenosis. If graft is supplying this area, 0 % stenosis csmith 11:01 AM Circumflex, Obtuse Marginal, Left Posterior Descending, and Left Posterolateral Coronary Arteries with 60 % stenosis. If graft is supplying this area, 0 % stenosis csmith 11:03 AM Report given to Caryn TAYLOR Pt taken to 2N Room #10. 11:03 csmith 11:03 AM Patient out of room: 11:03 csmith 11:03 AM Family placed in consult room. csmith Complications Complication None None Hemodynamics Pressures Site Systolic/A Wave Diastolic/V Wave Mean AO 87 62 74 LV 100 13 18 LV 112 4 24 AO 113 71 88 AO 99 63 80 AO 88 59 73 AO 90 59 73 Post Procedure Information Blood Pressure: 95/56 mmHg Rhythm: Sinus Bradycardia Post procedural instructions were given Closure Device Time Device Success/Fail 01/12/2018 10:50:00 AM Angio-Seal VIP Successful Site Checks Time Location Status Staff Sheath In? Note 10:50 AM Rt Groin No bleeding/hematoma Lucia Card RT Pulses Time Site Pre-Procedure Post-Procedure Note 01/12/2018 9:09:00 AM Bilateral DP & PT 1+ 01/12/2018 9:10:00 AM Bilateral radial 2+ 10:50:00 AM Bilateral DP & PT 1+ Updated by Umesh Cardona RN on 01/12/2018 11:06:40 AM electronically signed on 01/12/2018 11:07:13 AM with status of Final
[2018-01-12] MEDS ORDERED: Tirofiban 12.5 MG/250ML 12.5 MG/250 ML BAG IVC SCH (11:30)
[2018-01-12] MEDS: Aspirin 81 MG TAB.CHEW PO SCH (12:08)
--- NOTE | 2018-01-12 16:09 | Internal Med Progress Note ---
Date of Encounter: 01/12/18 Time of Encounter: 16:08 - Assessment and plan (1) NSTEMI (non-ST elevated myocardial infarction) Status: Acute Assessment and plan: It is associated with bradycardia. Cardiac catheterization is pending. Will continue aspirin. Will continue Aggrastat. See notes from cardiology. troponin from today is 11.06. (2) Bradycardia Status: Acute Assessment and plan: See above. He has some dizziness yesterday. They gave him 1 mg of Atropine. (3) GERD (gastroesophageal reflux disease) Status: Chronic Assessment and plan: Will continue his proton pump inhibitor. Qualifiers: Esophagitis presence: without esophagitis Qualified Code(s): K21.9 - Gastro -esophageal reflux disease without esophagitis - Time Spent With Patient Total time spent is greater than 50% in coordination of care (as documented) at patient's floor/unit and/or counseling patient: - Subjective Interval history: The patient is pain-free. Denies dyspnea. Denies dizziness/light-headedness; had some yesterday. He takes aspirin. Aggrastat was started today morning. He is waiting for cardiac catheterization. - Constitutional Vitals: Temp Pulse Resp BP Pulse Ox 98.3 F 54 16 88/55 98 01/12/18 11:46 01/12/18 12:15 01/12/18 12:15 01/12/18 12:15 01/12/18 12:15 General appearance: Present: A&O X 3, pleasant, no acute distress, answers questions appropriately - Respiratory Respiratory exam: Present: CTAB. Absent: accessory muscle use, rales, rhonchi, wheezes - Cardiovascular Cardiovascular exam: Present: bradycardia, RRR, +S1, +S2. Absent: diastolic murmur, gallop, rubs, systolic murmur - GI/Abdominal GI/Abdominal exam: Present: normal bowel sounds, soft, no peritoneal signs. Absent: distended, tenderness - Skin Skin exam: Present: dry, intact Internal Medicine: Result - Labs CBC & Chem 7: 01/13/18 01:48 01/13/18 01:48 Labs: Short CBC 01/12/18 Range/Units 00:30 WBC 11.2 H (4.3-11.1) K/mcL Hgb 12.7 L (12.9-16.9) g/dL Hct 37.7 (37.5-50.1) % Plt Count 197 (140-400) K/mcL Neutrophils # 9.8 H (1.6-8.9) K/mcL BMP 01/12/18 00:29 Sodium 137 Potassium 4.1 Chloride 105 Carbon Dioxide 27 BUN 12 Creatinine 0.89 Glucose 134 H Calcium 9.4 Cardiac Enzymes 01/12/18 01/12/18 Range/Units 00:29 05:31 Troponin I 4.00 H* 11.06 H* (< 0.04) ng/mL - ABG Interpretation ABG results: PT/INR, D-dimer PT 11.4 Seconds (9.4-12.1) 01/11/18 17:22 Consult Discharge Plan - Plan Instructions: Nitroglycerin (By mouth), Aspirin (By mouth), Atorvastatin (By mouth), Ticagrelor (By mouth), Myocardial Infarction (DC), Chest Pain (DC) Additional Instructions: Follow up with PCP in 2-3 days after discharge. Follow up with cardiology Dr. Calles in 5-7 days as directed. Referrals: Opal Pink CNP [Primary Care Provider] - 01/20/18 10:35 am () Salena Calles [Partnered Physician] - (Office will call patient at home with follow up appointment) Prescriptions: Nitroglycerin 0.4 mg SL Q5MIN PRN #15 tab.subl PRN Reason: Chest Pain Aspirin 81 mg PO DAILY 14 Days #14 tab.chew Atorvastatin [Lipitor] 40 mg PO HS 14 Days #14 tablet Ticagrelor [Brilinta] 90 mg PO BID 14 Days #28 tablet
[2018-01-12] MEDS: *HR* Ticagrelor 90 MG TABLET PO SCH (19:45)
[2018-01-13 02:29] LABS: BUN/Creatinine Ratio 11 (6-26); Blood Urea Nitrogen 10 mg/dL (6-20); Calcium 8.9 mg/dL (8.6-10.3); Carbon Dioxide 25 mEq/L (23-29); Chloride 108 mEq/L (98-107); Glucose 153 mg/dL (70-105); Osmolality,Calculated 292 (280-300); Potassium 3.8 mEq/L (3.5-5.1); Sodium 140 mEq/L (136-145); eGFR For African Americans > 60 (> 60); eGFR For Non-African Americans > 60 (> 60)
[2018-01-13 02:32] LABS: Basophils % 0.3 %; Eosinophils # 0.1 K/mcL (0.0-0.6); Eosinophils % 0.9 %; Hematocrit 36.6 % (37.5-50.1); Immature Granulocytes % 0.3 % (0-4); Lymphocytes # 0.9 K/mcL (0.6-4.6); Lymphocytes % 13.4 %; Mean Corpuscular HGB Conc 32.8 g/dL (31.6-35.5); Mean Corpuscular Hemoglobin 31.2 pg (28.0-33.3); Mean Corpuscular Volume 95.1 fL (83.0-100.0); Monocytes # 0.6 K/mcL (0.0-1.3); Monocytes % 8.8 %; Neutrophils # 5.1 K/mcL (1.6-8.9); Platelet Count 157 K/mcL (140-400); Red Blood Count 3.85 M/mcL (4.19-5.50); Red Cell Distribution Width 13.2 % (11.5-14.5); Segmented Neutrophils % 76.3 %
[2018-01-13] MEDS ORDERED: Pantoprazole 40 MG VIAL IVP SCH (06:00)
--- NOTE | 2018-01-13 09:02 | Cardiology Progress Note ---
Date of Encounter: 01/13/18 Time of Encounter: 08:00 Assessment and Plan (1) NSTEMI (non-ST elevated myocardial infarction) Current Visit: Yes Status: Acute Typical chest pain symptoms, no prior cardiac history. Troponin up to 11.06-- repeat troponin ordered now. No chest pain overnight. [facility] 01/12/18: s/p successful PTCA/ИРИНА to dRCA. TTE: pending--if not significant finding, okay to discharge. Cardiac rehab consulted. Post PCI discharge teaching discussed including care of cath site and importance of uninterrupted DAPT (asa + brilinta) for a minimum of 1 year--pt. verbalized understanding. Continue statin, no BB due to baseline bradycardia (improving) and borderline hypotension (SBP 90's-100's). Consider addition in the outpatient setting. Will coordinate outpatient follow-up in 5-[address] Calles. (2) Bradycardia Current Visit: Yes Status: Acute Avg HR=64 SR. No significant pause noted. Presenting bradycardia likely secondary to inferior [place]. Hold off on BB for now due to bradycardia/hypotension, consider starting in the outpatient setting. Discussion w patient/family: The assessment and plan as outlined above was discussed with the patient and/or family members who expressed understanding and agreement. All questions were answered. Thank you for involving us in the care of your patient. Please call with any questions. The patient will be discussed and reviewed with Dr. Bello; changes to be made accordingly. Subjective Principal diagnosis: NSTEMI Interval history: Seen and examined. No chest pain reported overnight. No issues with cath site. Objective Vital Signs, Last 4 Hours Temp Pulse Resp BP Pulse Ox 01/13/18 07:32 98.0 F 60 16 101/63 96 General: Conversant, No Apparent Distress HEENT: Atraumatic, Normocephaly, Mucus Membranes Moist Cardiac: Reg Rate and Rhythm, Normal S1 and S2 Lungs: Normal Breath Sounds Neuro: Alert and responsive Abdomen: Soft Skin: No rashes noted on visualized skin Musculoskeletal: No Chest Wall Tenderness Extremities: No Edema, Normal Pulses Other: right groin cath site: dressing C/D/I; no hematoma or bleeding present. +2 DP/ PT pulses. Results 01/13/18 01:48 01/13/18 01:48 Lab Results 01/13/18 01/13/18 01:48 01:48 WBC 6.7 Hgb 12.0 L Hct 36.6 L Plt Count 157 Sodium 140 Potassium 3.8 Chloride 108 H Carbon Dioxide 25 BUN 10 Creatinine 0.89 Glucose 153 H Calcium 8.9 Active Medications Acetaminophen (Tylenol) 650 mg PO Q6HR PRN PRN Reason: Mild Pain/Fever Stop: 07/13/18 20:23 Aspirin (Aspirin) 81 mg PO DAILY MICHAEL Stop: 07/14/18 09:01 Last Admin: 01/12/18 12:08 Dose: 81 mg Atorvastatin Calcium (Lipitor) 40 mg PO HS MICHAEL Stop: 07/13/18 21:01 Last Admin: 01/12/18 19:45 Dose: 40 mg Naloxone HCl (Narcan) 0.4 mg IVP Q2MIN PRN PRN Reason: SEE COMMENTS Stop: 07/13/18 20:14 Ondansetron HCl (Zofran) 4 mg IVP Q8HR PRN PRN Reason: Nausea And Vomiting Stop: 07/13/18 20:23 Oxycodone HCl (Oxycodone Oral Conc) 10 mg SL Q4H PRN; Protocol PRN Reason: Severe Pain Stop: 07/13/18 20:23 Ticagrelor (Brilinta) 90 mg PO BID MICHAEL Stop: 07/14/18 21:01 Last Admin: 01/12/18 19:45 Dose: 90 mg - Imaging and Cardiology Echo: report reviewed Other Results: 12 hour tele: avg HR=64 SR. No events noted. - EKG Interpretation EKG results cardiology: personally reviewed Consult Discharge Plan - Plan Referrals: Opal Pink, [employer] [Primary Care Provider] -
[2018-01-13] MEDS ORDERED: Nitroglycerin 0.4 MG TAB.SUBL SL PRN (09:03)
[2018-01-13] MEDS: *HR* Ticagrelor 90 MG TABLET PO SCH ×2 (09:24→20:22)
[2018-01-13] MEDS: Aspirin 81 MG TAB.CHEW PO SCH (09:24)
[2018-01-13 09:54] LABS: Troponin I 16.11 ng/mL (< 0.04)
--- NOTE | 2018-01-13 22:38 | Internal Med Progress Note ---
Date of Encounter: 01/13/18 Time of Encounter: 19:00 - Assessment and plan (1) NSTEMI (non-ST elevated myocardial infarction) Status: Acute Assessment and plan: He had cardiac catheterization today. They put one stent, into right coronary artery. He is not bradycardic anymore. Denies chest pain. Denies difficulty breathing. Will continue aspirin with ticagrelor and Lipitor. He has no betablocker due to recently observed with bradycardia. (2) Bradycardia Status: Acute Assessment and plan: He is at low 60s. (3) GERD (gastroesophageal reflux disease) Status: Chronic Qualifiers: Esophagitis presence: without esophagitis Qualified Code(s): K21.9 - Gastro -esophageal reflux disease without esophagitis - Time Spent With Patient Total time spent is greater than 50% in coordination of care (as documented) at patient's floor/unit and/or counseling patient: - Subjective Interval history: He has cardiac catheterization today morning. One stent was put into right coronary artery. The patient is not bradycardic anymore. Denies chest pain. Denies difficulty breathing. - Constitutional Vitals: Temp Pulse Resp BP Pulse Ox 97.9 F 71 16 122/78 99 01/13/18 19:56 01/13/18 19:56 01/13/18 19:56 01/13/18 19:56 01/13/18 19:56 General appearance: Present: A&O X 3, pleasant, no acute distress, answers questions appropriately - Respiratory Respiratory exam: Present: CTAB. Absent: accessory muscle use, rales, rhonchi, wheezes - Cardiovascular Cardiovascular exam: Present: RRR, +S1, +S2. Absent: diastolic murmur, gallop, rubs, systolic murmur - GI/Abdominal GI/Abdominal exam: Present: normal bowel sounds, soft, no peritoneal signs. Absent: distended, tenderness - Skin Skin exam: Present: dry, intact Internal Medicine: Result - Labs CBC & Chem 7: 01/13/18 01:48 01/13/18 01:48 Labs: Short CBC 01/13/18 Range/Units 01:48 WBC 6.7 (4.3-11.1) K/mcL Hgb 12.0 L (12.9-16.9) g/dL Hct 36.6 L (37.5-50.1) % Plt Count 157 (140-400) K/mcL Neutrophils # 5.1 (1.6-8.9) K/mcL BMP 01/13/18 01:48 Sodium 140 Potassium 3.8 Chloride 108 H Carbon Dioxide 25 BUN 10 Creatinine 0.89 Glucose 153 H Calcium 8.9 Cardiac Enzymes 01/13/18 Range/Units 01:48 Troponin I 16.11 H* (< 0.04) ng/mL - ABG Interpretation ABG results: PT/INR, D-dimer PT 11.4 Seconds (9.4-12.1) 01/11/18 17:22 - Impressions Impressions Echocardiogram 01/13/18 11:18 Impressions: LVEF 65%. Indeterminate diastolic function. Normal right ventricular structure and function. Mild-moderate mitral regurgitation. Mild tricuspid regurgitation. Mild pulmonary hypertension. Left Ventricular Wall Motion: Rest Echo Findings All wall segments showed normal motion. Findings: Study Quality * Technically adequate exam. ECG Findings * Normal sinus rhythm. Left Ventricle * LVEF 65%. * Normal LV chamber size, wall thickness and function. * Indeterminate diastolic function. Right Ventricle * Normal right ventricular structure and function. Left Atrium * Mildly dilated left atrium. Right Atrium * Normal right atrial size. Aortic Valve * Aortic valve not well visualized. * No aortic stenosis. * No aortic regurgitation. Mitral Valve * Normal mitral valve structure. * No mitral stenosis. * Mild-moderate mitral regurgitation. Tricuspid Valve * Normal tricuspid valve structure. * Mild tricuspid regurgitation. * Estimated RA pressure is 8 mmHg. * Estimated RVSP is 41 mmHg. * Mild pulmonary hypertension. Pulmonic Valve * Pulmonic valve is not well visualized. * No pulmonic stenosis. * No pulmonic regurgitation. Pulmonary Artery * Pulmonary artery not well visualized. Aorta * Normally sized aortic root. Pericardium * There is no pericardial effusion present. Interatrial Septum * No evidence of PFO by color Doppler. IVC * The IVC is not dilated. * < 50% respiratory change. Consult Discharge Plan - Plan Instructions: Nitroglycerin (By mouth), Aspirin (By mouth), Atorvastatin (By mouth), Ticagrelor (By mouth), Myocardial Infarction (DC), Chest Pain (DC) Additional Instructions: Follow up with PCP in 2-3 days after discharge. Follow up with cardiology Dr. Calles in 5-7 days as directed. Referrals: Opal Pink GENERAL DOC [Primary Care Provider] - 01/20/18 10:35 am () Salena Calles [Partnered Physician] - (Office will call patient at home with follow up appointment) Prescriptions: Nitroglycerin 0.4 mg SL Q5MIN PRN #15 tab.subl PRN Reason: Chest Pain Aspirin 81 mg PO DAILY 14 Days #14 tab.chew Atorvastatin [Lipitor] 40 mg PO HS 14 Days #14 tablet Ticagrelor [Brilinta] 90 mg PO BID 14 Days #28 tablet
[2018-01-14] MEDS: *HR* Ticagrelor 90 MG TABLET PO SCH (07:28)
[2018-01-14] MEDS: Aspirin 81 MG TAB.CHEW PO SCH (07:28)
--- NOTE | 2018-01-14 10:39 | Cardiology Progress Note ---
Date of Encounter: 01/14/18 Time of Encounter: 09:00 Assessment and Plan (1) NSTEMI (non-ST elevated myocardial infarction) Current Visit: Yes Status: Acute Presented with typical chest pain symptoms, no prior cardiac history. Troponin up to 16.11 and trending down. No chest pain overnight. [facility] 01/12/18: s/p successful PTCA/ИРИНА to dRCA. Moderate non-obstructive CAD otherwise. TTE: Shows preserved EF at 65%. Mild to moderate MR. Mild tricuspid regurgitation. Mild pulmonary artery hypertension. Cardiac rehab consulted. Post PCI discharge teaching discussed including care of cath site and importance of uninterrupted DAPT (asa + brilinta) for a minimum of 1 year--pt. verbalized understanding. Brilinta card given. Continue statin, no BB due to baseline bradycardia (improving) and borderline hypotension (SBP 90's-100's). Consider addition in the outpatient setting. Activity restrictions reviewed. Will coordinate outpatient follow-up in 5-[address] Calles. Cardiology will sign off. (2) Bradycardia Current Visit: Yes Status: Acute Avg HR=64 SR. No significant pause noted. Presenting bradycardia likely secondary to inferior [place]. Hold off on BB for now due to bradycardia/hypotension, consider starting in the outpatient setting. Discussion w patient/family: The assessment and plan as outlined above was discussed with the patient and/or family members who expressed understanding and agreement. All questions were answered. Thank you for involving us in the care of your patient. Please call with any questions. Subjective Principal diagnosis: NSTEMI Objective Vital Signs, Last 4 Hours Temp Pulse Resp BP Pulse Ox 01/14/18 07:34 66 01/14/18 07:14 98.3 F 58 20 111/66 98 Results 01/13/18 01:48 01/13/18 01:48 Lab Results 01/14/18 08:44 Troponin I 6.71 H* Consult Discharge Plan - Plan Referrals: Opal Pink CNP [Primary Care Provider] - 01/20/18 10:35 am () Salena Calles [Partnered Physician] - (SENT WEB REQUEST ON 01-13-18 [id number])
[2018-01-14 11:37] VITALS: BP 116/81
--- NOTE | 2018-01-14 15:57 | Discharge Summary ---
- NOTES TO OUTPATIENT PROVIDER Notes to Outpatient Provider: Follow up with PCP in 2-3 days after discharge. Follow up with cardiology Dr. Calles in 5-7 days as directed. Date of Encounter: 01/14/18 Time of Encounter: 15:55 - Discharge Diagnosis (1) Chest pain Priority: Primary Status: Resolved Qualifiers: Chest pain type: unspecified Qualified Code(s): R07.9 - Chest pain, unspecified (2) NSTEMI (non-ST elevated myocardial infarction) Priority: Secondary Status: Acute (3) GERD (gastroesophageal reflux disease) Priority: Secondary Status: Chronic Qualifiers: Esophagitis presence: without esophagitis Qualified Code(s): K21.9 - Gastro -esophageal reflux disease without esophagitis (4) DVT prophylaxis Priority: Secondary Status: Acute Hospital course: Mr. Romero is a 57 year old male admitted for chest pain. Patient admitted to general medical floor with telemetry. He was started on heparin drip. Cardiology was consulted. He was taken for C, s/p PTCA/ИРИНА to [place]. ECHO showed LVEF 65%, indeterminate diastolic function, normal RV structure and function, mild-moderate mitral regurgitation, mild tricuspid regurgitation, and mild pulmonary hypertension. Post-procedure troponin trended up, so he was kept an extra day for observation. Troponin trended down the next day. Patient is chest pain free today. He has no complaints. Will discharge home with brillinta, aspirin, and lipitor. Will also discharge with PRN nitroglycerin. Beta justo held for now due to bradycardia until he follows up with cardiology. He will follow up with PCP in 2-3 days after discharge. He will follow up with cardiology Dr. Calles in 5-7 days as directed. Patient has met maximum benefit of this hospitalization and will be discharged home in stable condition. Discharge discussed with: patient, nurse, other (Pharmacist) - Time Spent with Patient Total time spent providing and/or coordinating discharge services: Greater than 30 minutes - Discharge Medications Prescriptions: Nitroglycerin 0.4 mg SL Q5MIN PRN #15 tab.subl PRN Reason: Chest Pain Aspirin 81 mg PO DAILY 14 Days #14 tab.chew Atorvastatin [Lipitor] 40 mg PO HS 14 Days #14 tablet Ticagrelor [Brilinta] 90 mg PO BID 14 Days #28 tablet Home Medications: Pantoprazole Sodium [Protonix] 40 mg PO BID 01/12/18 [History] Aspirin 81 mg PO DAILY 14 Days #14 tab.chew 01/14/18 [Rx] Atorvastatin [Lipitor] 40 mg PO HS 14 Days #14 tablet 01/14/18 [Rx] Nitroglycerin 0.4 mg SL Q5MIN PRN #15 tab.subl 01/14/18 [Rx] Ticagrelor [Brilinta] 90 mg PO BID 14 Days #28 tablet 01/14/18 [Rx] Allergies/Adverse Reactions: 3 Allergy/AdvReac Type Severity Reaction Status Date / Time No Known Allergies Allergy Verified 01/12/18 14:19 Date of admission: 01/11/18 21:59 Primary care physician: Opal Pink CNP Consults: 01/12/18 10:04 Consult to Cardiac Rehabilitation-Phase1 [CONS] Routine Comment: Reason for Consult: NSTEMI Call Completed: Yes 01/12/18 11:18 Consult to Cardiac Rehabilitation-Phase1 [CONS] Routine Comment: Reason for Consult: AMI Call Completed: Yes Consult to Nurse Navigator [CONS] Routine Comment: 01/14/18 05:57 Consult to Mid Level Java Developer [CONS] Stat Reason for SW Consult: Insurance approval for Brilinta Discharging clinician: Rk Marcelo Anticipated date of discharge: 01/14/18 - Constitutional Vitals: Temp Pulse Resp BP Pulse Ox 98.2 F 75 18 116/81 100 01/14/18 11:33 01/14/18 15:32 01/14/18 11:33 01/14/18 11:33 01/14/18 11:33 General appearance: Present: cooperative, A&O X 3, pleasant, no acute distress, answers questions appropriately - Respiratory Respiratory exam: Present: CTAB. Absent: accessory muscle use, rales, rhonchi, wheezes Additional comments: Normal WOB - Cardiovascular Cardiovascular exam: Present: RRR, +S1, +S2. Absent: diastolic murmur, gallop, rubs, systolic murmur Additional comments: No BLE edema - GI/Abdominal GI/Abdominal exam: Present: normal bowel sounds, soft. Absent: distended, hepatomegaly, mass, splenomegaly, tenderness - Psychiatric Psychiatric exam: Present: normal affect, normal mood. Absent: agitated, anxious, depressed - Skin Skin exam: Present: dry, intact, warm. Absent: cyanosis, rash - Patient Status Disposition: Home, Self-Care Condition: Good Functional capacity at discharge: independent ambulation Overall status at discharge: patient is progressing back to baseline - Discharge Instructions Follow Up With: Opal Pink CNP [Primary Care Provider] - 01/20/18 10:35 am () Salena Calles [Partnered Physician] - (Office will call patient at home with follow up appointment) Additional Instructions: Follow up with PCP in 2-3 days after discharge. Follow up with cardiology Dr. Calles in 5-7 days as directed. - Diet and Activity Activity: resume usual activities as tolerated Diet: low fat, low cholesterol, low salt diet, other (Cardiac Diet)
--- NOTE | 2018-01-15 06:41 | Electrocardiograph Report ---
[address] [address] Test Date: 2018-01-11 Pat Name: Chadd Romero Department: 102 Room: 2N10 Gender: M Classroom Monitor: Shiv : 1960 Requested By: Slava Sandoval Order Number: [id number] Reading MD: Branden Braun Measurements Intervals [place] Rate: 75 P: 75 NE: 147 QRS: 47 QRSD: 97 T: 47 QT: 399 QTc: 428 Interpretive Statements SINUS RHYTHM WITH SINUS ARRHYTHMIA Electronically Signed On 01-15-2018 6:40:09 EDT by Branden Braun
--- NOTE | 2018-01-15 06:42 | Electrocardiograph Report ---
[address] [address] Test Date: 2018-01-11 Pat Name: Chadd Romero Department: 102 Room: 2N10 Gender: M Retinal Angiographer: Shiv : 1960 Requested By: Rodney Flores Order Number: [id number] Reading MD: Branden Braun Measurements Intervals [place] Rate: 99 P: 41 MA: 163 QRS: 14 QRSD: 102 T: 37 QT: 337 QTc: 393 Interpretive Statements SINUS RHYTHM Electronically Signed On 01-15-2018 6:41:05 EDT by Branden Braun
--- NOTE | 2018-01-15 06:42 | Electrocardiograph Report ---
[address] [address] Test Date: 2018-01-11 Pat Name: Chadd Romero Department: 102 Room: 2N10 Gender: M Field Captain: Shiv : 1960 Requested By: Salena Calles Order Number: [id number] Reading MD: Branden Braun Measurements Intervals [place] Rate: 44 P: 59 RI: 149 QRS: 37 QRSD: 100 T: 48 QT: 451 QTc: 404 Interpretive Statements SINUS BRADYCARDIA WITH SINUS ARRHYTHMIA Electronically Signed On 01-15-2018 6:40:54 EDT by Branden Braun
--- NOTE | 2018-01-15 07:01 | Electrocardiograph Report ---
[address] [place], [place] [address] Test Date: 2018-01-12 Pat Name: Chadd Romero Department: 110 Room: 2N10 Gender: M Lithographic Printing Machinist: : 1960 Requested By: Rodney Flores Order Number: [id number] Reading MD: Branden Braun Measurements Intervals [place] Rate: 61 P: 66 HI: 153 QRS: -9 QRSD: 89 T: 4 QT: 381 QTc: 385 Interpretive Statements SINUS RHYTHM INFERIOR MYOCARDIAL INFARCTION, OF INDETERMINATE AGE WITH POSTERIOR EXTENSION Electronically Signed On 01-15-2018 6:59:45 EDT by Branden Braun
--- NOTE | 2018-01-15 07:07 | Electrocardiograph Report ---
[place] [address] Test Date: 2018-01-13 Pat Name: Chadd Romero Department: 110 Room: 2N10 Gender: M Manager Dialysis: [id number] : 1960 Requested By: Slaena Calles Order Number: [id number] Reading MD: Branden Braun Measurements Intervals [place] Rate: 74 P: 65 CT: 135 QRS: -4 QRSD: 97 T: -48 QT: 375 QTc: 402 Interpretive Statements SINUS RHYTHM INFERIOR MYOCARDIAL INFARCTION, OF INDETERMINATE AGE Electronically Signed On 01-15-2018 7:05:19 EDT by Branden Braun
== END 2018-01-14 17:28 | disposition home or self-care (01) | DRG 247 ==
LOC: EMEROO 16:45 → 2NNU 16:45
PROVIDERS: ADMIT Internal Medicine; ATTEND Internal Medicine